=== PATIENT | male | born 1970 | race Caucasian/White ===

== ENCOUNTER 2016-05-06 16:49 | Emergency (ER) | payer SELFPAY ==
[2016-05-06] MEDS ORDERED: oxyCODONE/Acetamin 5/325 MG* TAB PO ONE (17:23)
[2016-05-06] MEDS ORDERED: NS 0.9% 1000 ML* 1,000 ML IV ONE ×2 (17:51→20:11)
[2016-05-06] MEDS ORDERED: cefTRIAXone(*) 1 GM in NS 0.9% 50 ML* 50 ML IVPB ONE (17:51)
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
[2016-05-06 18:56] LABS: Hematocrit 45 % (42-52); Hemoglobin 14.9 g/dl (14.0-18.0); Mean Corpuscular HGB Conc 33 g/dl (31-36); Mean Corpuscular Hemoglobin 29 pg (27-31); Mean Corpuscular Volume 89 fL (80-94); Mean Platelet Volume 10 um3 (7.4-10.4); Red Blood Count 5.08 10^6/ul (4.0-5.4); Red Cell Distribution Width 13 % (10.5-15); White Blood Count 31.7 10^3/ul (3.5-10.8)
[2016-05-06 19:08] LABS: Add Diff/Slide Review? Slide Review Added; Comments Flag Yes
[2016-05-06 19:12] LABS: Albumin 3.5 g/dL (3.2-5.2); BUN/Creatinine Ratio 8.9 (8-20); C Reactive Protein 260.75 mg/L (< 5.00); Calcium 9.1 mg/dL (8.6-10.3); EGFR African American 118.4 (>60); EGFR Non-African American 92.1 (>60); Globulin 2.8 g/dL (2-4); Potassium 3.4 mmol/L (3.5-5.0); Total Bilirubin 0.8 mg/dL (0.2-1.0); Total Protein 6.3 g/dL (6.4-8.9)
[2016-05-06] MEDS ORDERED: Iohexol 300* (CONTRAST) 10 ML SDV IV ONE (19:14)
[2016-05-06] MEDS ORDERED: Clindamycin 900 MG/D5W BAG(*) 50 ML IVPB ONE (19:26)
[2016-05-06] MEDS ORDERED: Piperac/Tazob 3.375 gm in NS* 3.375 GM/100 ML BAG IVPB ONE ×2 (19:26→20:07)
[2016-05-06] MEDS ORDERED: Vancomycin(*) 1,500 MG in NS 0.9% 250 ML* 250 ML IVPB ONE (19:28)
[2016-05-06 19:53] LABS: Erythrocyte Sed Rate 43 mm/Hr (0-14)
[2016-05-06] MEDS ORDERED: Ertapenem* 1 GM in NS 0.9% 50 ML* 50 ML IVPB ONE (20:00)
--- NOTE | 2016-05-06 20:03 | RAD ---
INDICATION: Right lower extremity pain and erythema COMPARISON: None. TECHNIQUE: CT examination of the right lower extremity after the injection of 100 mL Omnipaque 300. Axial images were acquired and sagittal and coronal reformats were created and independently analyzed. FINDINGS: Beginning at the distal right thigh there is subcutaneous infiltration that starts laterally before encircling most of the thigh extending down into the level of the knee in the right lower leg. This subcutaneous infiltration extends down into the foot. There is no drainable fluid collection. There is no subcutaneous gas. The bones of the right lower extremity are cortically intact and appropriately aligned. Evaluation of the arterial and venous structures is limited due to the contrast timing but there is no obvious abnormality of the visualized arteries and veins. IMPRESSION: Infiltration of the subcutaneous fat beginning at the right distal thigh extending extending into the foot. There is no drainable abscess or subcutaneous gas. CT findings are most consistent with widespread cellulitis. Findings discussed with Dr. Clemente over the telephone at 1958 hours on May 06, 2016
[2016-05-06 20:35] VITALS: BP 140/86
--- NOTE | 2016-05-06 21:00 | ED ---
Cameron Copeland Rebecca, scribed for Ender Clemente MD on 05/06/16 at 1952 . Progress - Progress Note Progress Note: Asked to evaluate pt by PA. Recommended Abx, labs and imaging. Imaging concerning for early necrotizing fasciitis. Discussed w/ Dr. Reid who believed this was above our level of care. Discussed with Dr. Salgado, hospitalist , who did not feel comfortable admitting pt. Discussed w/ Dr. Ag at [facility] who graciously accepts pt. He recommends zosyn, clindamycin, vancomycin and ertapenem. Not able to fly, awaiting ambulance. Attempting to secure a nurse to travel on ambulance with IV Abx. Exam reveals: GENERAL: Awake, alert, oriented, no acute distress, very pleasant, non-toxic appearing HEAD/FACE: Head is normocephalic, atraumatic EYES: Anicteric sclera, clear conjunctiva ENT: Mucous membranes moist, no erythema, no discharge, no lesions, neck is supple, trachea is midline, no JVD CARDIAC: Regular rate and rhythm, S1, S2, no rub, no murmur, no gallop, 2+ radial and pedal pulses bilaterally RESPIRATORY: Clear to auscultation bilaterally with no rales, rhonchi, or wheezes, non-tender ABDOMEN: Bowel sounds positive, no bruit, soft, non-tender, no CVA tenderness EXTREMITIES: Warm, dry, moving all extremities in a grossly normal manner. RLE shows edema with no crepitus. RLE is warm, erythematous and with 2+ pulses. No pain with passive ROM. NEUROLOGICAL: Mood is appropriate, moving all extremities in a grossly normal manner - Results/Orders Results/Orders: Lower extremity CT: Infiltration of the subcutaneous fat beginning at the right distal thigh extending extending into the foot. There is no drainable abscess or subcutaneous gas. CT findings are most consistent with widespread cellulitis. Findings discussed with Dr. Clemente over the telephone at 1958 hours on May 06, 2016 - Consult/PCP Time Called: 20:04 - Dr. Ag accepts pt Consult/PCP: [facility] ICU Re-Evaluation - Re-Evaluation First Eval Re-Evaluation Time: 20:21 Change: Unchanged Comment: Explained to pt that he will be getting transferred to [facility] ICU. Is not currently in any pain. Course/Dx - Diagnoses Provider Diagnoses: Cellulitis, Necrotizing fasciitis - Provider Notifications Discussed Care Of Patient With: Dr. Reid who believed that necrotizing fasciitis is above our level of care. Time Discussed With Above Provider: 19:42 The documentation as recorded by the Cameron goncalves Rebecca accurately reflects the service I personally performed and the decisions made by , Ender Clemente MD.
== END 2016-05-06 20:35 | disposition short-term general hospital (02) ==
LOC: ED 16:49
DX: L03.90 Cellulitis, unspecified (principal); M72.6 Necrotizing fasciitis; F17.210 Nicotine dependence, cigarettes, uncomplicated
CPT/HCPCS: 36415; 80053; 82550; 83605; 85025; 85652; 86140; 87040; 96360; 96361; 99282; A9270-GY; J0696; J1335; J2543; J3370; Q9967

== ENCOUNTER 2017-08-19 17:18 | Emergency (ER) | payer SELFPAY ==
[2017-08-19] MEDS ORDERED: Ketorolac INJ* 30 MG/ML 1 ML VIAL IM ONE (19:25)
--- NOTE | 2017-08-19 20:01 | RAD ---
INDICATION: Back injury. COMPARISON: There are no prior studies available for comparison. TECHNIQUE: AP and lateral films of the spine were obtained centered at the dorsal lumbar junction. FINDINGS: The vertebra are in normal alignment. There are mild compression fractures involving the superior endplates of the T11 and T12 vertebral bodies, age indeterminate. There is mild to moderate degenerative disc disease in the lower dorsal and and upper lumbar spine. IMPRESSION: MILD COMPRESSION FRACTURES OF THE T11 AND T12 VERTEBRAL BODIES, AGE INDETERMINATE.
[2017-08-19 20:20] VITALS: BP 144/88
[2017-08-19] MEDS ORDERED: Cyclobenzaprine TAB* 10 MG PO ONE (20:29)
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
== END 2017-08-19 20:49 | disposition home or self-care (01) ==
LOC: UCEAST 17:18
DX: S22.080B Wedge compression fracture of T11-T12 vertebra, initial encounter for open fracture (principal); W01.0XXA Fall on same level from slipping, tripping and stumbling without subsequent striking against object, initial encounter; Y93.89 Activity, other specified; Y92.524 Gas station as the place of occurrence of the external cause; M51.35 Other intervertebral disc degeneration, thoracolumbar region; D17.9 Benign lipomatous neoplasm, unspecified; F17.210 Nicotine dependence, cigarettes, uncomplicated
CPT/HCPCS: 72080; 96372; 99212; A9270-GY; G0463; J1885

== ENCOUNTER 2018-10-03 21:09 | Emergency (ER) | payer SELFPAY ==
[2018-10-03 21:16] VITALS: BP 177/95
== END 2018-10-03 22:49 | disposition left against medical advice (07) ==
LOC: ED 21:09
DX: M54.9 Dorsalgia, unspecified (principal); Z53.21 Procedure and treatment not carried out due to patient leaving prior to being seen by health care provider

== ENCOUNTER 2018-10-21 12:13 | Emergency (ER) | payer SELFPAY ==
[2018-10-21 12:50] VITALS: BP 145/89
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
== END 2018-10-21 13:59 | disposition home or self-care (01) ==
LOC: UCCORT 12:13
DX: K42.9 Umbilical hernia without obstruction or gangrene (principal); I10 Essential (primary) hypertension; F17.210 Nicotine dependence, cigarettes, uncomplicated
CPT/HCPCS: 99211; G0463

== ENCOUNTER 2023-09-29 12:47 | Inpatient (IN) ==
[2023-09-29 13:30] LABS: Hematocrit 49.1 % (38-53); Hemoglobin 16.3 g/dL (13.2-16.3); Mean Corpuscular Hemoglobin 30.1 pg (27-33); Mean Corpuscular Hgb Conc 33.3 g/dL (31-36); Mean Corpuscular Volume 90.4 fL (80-97); Mean Platelet Volume 9.9 fL (7.5-11.2); Platelet Count 170 10^3/uL (150-450); Red Blood Count 5.43 10^6/uL (4.06-5.63); Red Cell Distribution Width 13.7 % (12-17)
[2023-09-29 14:11] LABS: ABS Basophils 0.1 10^3/uL (0.0-0.1); ABS Eosinophils 0.1 10^3/uL (0.0-0.5); ABS Lymphocytes 0.9 10^3/uL (1.0-4.8); ABS Monocytes 1.6 10^3/uL (0.0-1.1); ABS Neutrophils 18.2 10^3/uL (1.5-7.6); ABS Nucleated RBC 0.04 10^3/ul; Eosinophil % 0.6 %; Lymphocyte % 4.3 %; Nucleated Red Blood Cells % 0.2 %/100WBC (0.0-0.8)
[2023-09-29 14:22] LABS: Albumin 4.1 g/dL (3.2-5.2); Albumin/Globulin Ratio 1.4 (1-3); Calcium 9.1 mg/dL (8.6-10.3); Creatinine, Serum 1.07 mg/dL (0.67-1.17); Globulin 2.9 g/dL (2-4); Magnesium 1.9 mg/dL (1.9-2.7); Potassium 3.8 mmol/L (3.5-5.0); Total Bilirubin 0.7 mg/dL (0.2-1.0); eGFR CKD-EPI 84.5 (>60)
[2023-09-29 15:24] LABS: High Sensitivity Troponin 1 Hr 67 pg/mL (<20)
[2023-09-29] MEDS: Furosemide 40 mg/4 ml IV VIAL IV SLOW PU ONE (15:37)
[2023-09-29] MEDS ORDERED: niCARdipine 0.1MG/ML IVPREMIX 20 MG/200 ML BAG IV SCH (16:00)
[2023-09-29] MEDS: cefTRIAXone 1 gm/50 mL D5W 1 GM/50 ML BAG IV ONE (16:15)
[2023-09-29] MEDS: niCARdipine 0.1MG/ML IVPREMIX 20 MG/200 ML BAG IV SCH ×2 (16:23→17:00)
[2023-09-29] MEDS ORDERED: Nicotine GUM 2MG FRUIT FLAVOR PO PRN (16:36)
[2023-09-29 17:01] LABS: Urine Appearance Clear; Urine Bilirubin Negative (Negative); Urine Blood Negative (Negative); Urine Color Light-Yellow; Urine Glucose Negative (Negative); Urine Ketones Negative (Negative); Urine Nitrite Negative (Negative); Urine Protein Trace (Negative); Urine Specific Gravity 1.013 (1.002-1.030); Urine Urobilinogen Negative (Negative)
[2023-09-29 17:38] LABS: Urine Benzodiazepine Screen None Detected (None Detect); Urine Cannabinoids Screen Presumptive Positive (None Detect); Urine Opiates Screen None Detected (None Detect)
[2023-09-29] MEDS: Nicotine PATCH 14 MG/24 HR PATCH TRANSDERM SCH (17:42)
[2023-09-29] MEDS: Magnesium Sulfate 2 gm BAG 2 GM/50 ML BAG IVPB ONE (19:06)
[2023-09-29] MEDS: Potassium Chlor 20 meq TAB.ER PO ONE (19:06)
[2023-09-29] MEDS: Enoxaparin 40 MG/0.4 ML SYR SUBCUT SCH (20:44)
[2023-09-29] MEDS: Furosemide 40 mg/4 ml IV VIAL IV ONE (20:44)
[2023-09-30 05:32] LABS: Hematocrit 44.2 % (38-53); Hemoglobin 15.1 g/dL (13.2-16.3); Mean Corpuscular Hemoglobin 30.9 pg (27-33); Mean Corpuscular Hgb Conc 34.1 g/dL (31-36); Mean Corpuscular Volume 90.5 fL (80-97); Mean Platelet Volume 9.2 fL (7.5-11.2); Platelet Count 144 10^3/uL (150-450); Red Blood Count 4.89 10^6/uL (4.06-5.63); Red Cell Distribution Width 13.9 % (12-17); White Blood Count 15.3 10^3/uL (3.6-10.2)
[2023-09-30 05:47] LABS: ABS Basophils 0.1 10^3/uL (0.0-0.1); ABS Eosinophils 0.1 10^3/uL (0.0-0.5); ABS Lymphocytes 0.9 10^3/uL (1.0-4.8); ABS Monocytes 1.6 10^3/uL (0.0-1.1); ABS Neutrophils 12.7 10^3/uL (1.5-7.6); ABS Nucleated RBC 0.01 10^3/ul; Eosinophil % 0.6 %; Lymphocyte % 5.6 %
[2023-09-30 06:45] LABS: Albumin 3.4 g/dL (3.2-5.2); Albumin/Globulin Ratio 1.5 (1-3); Calcium 8.3 mg/dL (8.6-10.3); Creatinine, Serum 1.12 mg/dL (0.67-1.17); Globulin 2.3 g/dL (2-4); Total Bilirubin 0.7 mg/dL (0.2-1.0); Total Protein 5.7 g/dL (6.4-8.9)
[2023-09-30] MEDS: Furosemide 40 mg/4 ml IV VIAL IV SLOW PU SCH (07:43)
[2023-09-30] MEDS ORDERED: Vancomycin 1,000 MG in NS 0.9% 250 ml 250 ML IVPB SCH (08:00)
[2023-09-30] MEDS ORDERED: Sulfur Hexaflouride MICROSPHR 25 MG VIAL ONE (12:58)
[2023-09-30 14:07] LABS: TSH Ultra Thyroid Stim Horm 0.87 mcIU/mL (0.34-5.60)
[2023-09-30] MEDS: cefTRIAXone 1 gm/50 mL D5W 1 GM/50 ML BAG IV SCH (16:54)
[2023-10-01 05:17] LABS: Hematocrit 44.3 % (38-53); Hemoglobin 14.9 g/dL (13.2-16.3); Mean Corpuscular Hemoglobin 30.6 pg (27-33); Mean Corpuscular Hgb Conc 33.7 g/dL (31-36); Mean Corpuscular Volume 90.6 fL (80-97); Mean Platelet Volume 9.1 fL (7.5-11.2); Platelet Count 139 10^3/uL (150-450); Red Blood Count 4.89 10^6/uL (4.06-5.63); Red Cell Distribution Width 13.9 % (12-17); White Blood Count 12.9 10^3/uL (3.6-10.2)
[2023-10-01 05:21] LABS: ABS Basophils 0.1 10^3/uL (0.0-0.1); ABS Eosinophils 0.2 10^3/uL (0.0-0.5); ABS Lymphocytes 1.1 10^3/uL (1.0-4.8); ABS Monocytes 1.7 10^3/uL (0.0-1.1); ABS Neutrophils 9.7 10^3/uL (1.5-7.6); ABS Nucleated RBC 0.01 10^3/ul; Eosinophil % 1.7 %; Lymphocyte % 8.8 %; Nucleated Red Blood Cells % 0.1 %/100WBC (0.0-0.8)
[2023-10-01 05:51] LABS: Calcium 8.6 mg/dL (8.6-10.3); Creatinine, Serum 1.08 mg/dL (0.67-1.17); Potassium 4.1 mmol/L (3.5-5.0); eGFR CKD-EPI 83.6 (>60)
[2023-10-01] MEDS: Furosemide 40 mg/4 ml IV VIAL IV SLOW PU SCH (08:08)
[2023-10-01] MEDS: Albuterol 2.5mg/3 ml (0.083%) NEB.SOLN INH ONE ×2 (08:58)
[2023-10-01] MEDS: Furosemide 40 mg/4 ml IV VIAL ONE (09:55)
[2023-10-01] MEDS ORDERED: Albuterol 2.5mg/3 ml (0.083%) NEB.SOLN INH SCH (10:00)
[2023-10-01] MEDS: Spironolactone/HCTZ 25-25 mg PO SCH (10:40)
[2023-10-01] MEDS: Albuterol 2.5mg/3 ml (0.083%) NEB.SOLN INH SCH (13:52)
[2023-10-01] MEDS: Furosemide 40 mg/4 ml IV VIAL IV SLOW PU ONE (17:35)
[2023-10-02 05:21] LABS: ABS Basophils 0.1 10^3/uL (0.0-0.1); ABS Eosinophils 0.3 10^3/uL (0.0-0.5); ABS Lymphocytes 1.3 10^3/uL (1.0-4.8); ABS Monocytes 1.5 10^3/uL (0.0-1.1); ABS Neutrophils 8.1 10^3/uL (1.5-7.6); ABS Nucleated RBC 0.02 10^3/ul; Eosinophil % 2.7 %; Hematocrit 45.3 % (38-53); Hemoglobin 15.4 g/dL (13.2-16.3); Lymphocyte % 11.8 %; Mean Corpuscular Hemoglobin 30.6 pg (27-33); Mean Corpuscular Volume 89.8 fL (80-97); Mean Platelet Volume 9.4 fL (7.5-11.2); Nucleated Red Blood Cells % 0.2 %/100WBC (0.0-0.8); Platelet Count 134 10^3/uL (150-450); Red Blood Count 5.04 10^6/uL (4.06-5.63); Red Cell Distribution Width 13.5 % (12-17); White Blood Count 11.3 10^3/uL (3.6-10.2)
[2023-10-02 06:04] LABS: Calcium 8.7 mg/dL (8.6-10.3); Creatinine, Serum 1.12 mg/dL (0.67-1.17)
[2023-10-02 08:53] LABS: HDL Cholesterol 26.4 mg/dL
[2023-10-02] MEDS ORDERED: Nicotine Lozenge mini 2 MG LOZNG.MINI MT PRN (10:32)
[2023-10-03] MEDS ORDERED: Albuterol 2.5mg/3 ml (0.083%) NEB.SOLN INH PRN (07:38)
[2023-10-03 08:32] LABS: ABS Basophils 0.1 10^3/uL (0.0-0.1); ABS Eosinophils 0.3 10^3/uL (0.0-0.5); ABS Lymphocytes 1.1 10^3/uL (1.0-4.8); ABS Monocytes 1.4 10^3/uL (0.0-1.1); ABS Neutrophils 8.2 10^3/uL (1.5-7.6); ABS Nucleated RBC 0.01 10^3/ul; Hemoglobin 15.5 g/dL (13.2-16.3); Lymphocyte % 10.1 %; Mean Corpuscular Hemoglobin 30.4 pg (27-33); Mean Corpuscular Hgb Conc 33.7 g/dL (31-36); Mean Corpuscular Volume 90.2 fL (80-97); Mean Platelet Volume 9.4 fL (7.5-11.2); Nucleated Red Blood Cells % 0.1 %/100WBC (0.0-0.8); Platelet Count 160 10^3/uL (150-450); Red Cell Distribution Width 13.5 % (12-17); White Blood Count 11.2 10^3/uL (3.6-10.2)
[2023-10-03 09:05] LABS: Calcium 9.2 mg/dL (8.6-10.3); Creatinine, Serum 0.99 mg/dL (0.67-1.17); Potassium 4.1 mmol/L (3.5-5.0); eGFR CKD-EPI 92.8 (>60)
[2023-10-03 14:41] VITALS: BP 141/90
== END 2023-10-03 15:23 | disposition home or self-care (01) | DRG 720 ==
LOC: ED 12:47 → EDHOLD 15:19 → ICU 16:37 → MEDTELE 10-02 09:16
PROVIDERS: ADMIT Internal Medicine Critical Care Medicine; ATTEND Internal Medicine Critical Care Medicine